=== PATIENT | female | born 1940 | race Caucasian/White ===

== ENCOUNTER → 2016-10-18 | Outpatient (REF) | payer MEDICARE, MEDICAID ==
[~2016-10-18] MED LIST: /GLYB5TA OR; /WARF5TA OR; ACET1TAB17 PO; ACET65TA OR; ASPI81CH PO; BIOTPOW20 PO; BUME0.5T PO; BUME1TA PO; BUSP10TA PO; CALCCHW12 OR; CETI10TA OR; CLOP75TA2 PO; COUM1TAB OR; DEPAKOTE; DULC10SU2 PR; ELIQ5TAB PO; ENEM1ENE4 PR; HYOS125TA PO; IMMODIUM PO; INSUH10VL SC; INSULANT SC; IRON28TA OR; KETOCONAZOLE SHAMPOO TOP; LASI80TA OR; LEVO150T42 PO; LEVO75TA2 OR; LORA0.5T11 PO; MAALSUS OR; METF-839 PO; METF500T4 OR; MILKSUS OR; MILKSUS PO; MORP20SO3 PO; MULTLIQ PO; NORV5TAB OR; REFR0.5D8 OU; ROBISYP3 PO; SERT50TA2 PO; SLOWTAB OR; SYSTANE OU; TOPR50TA OR; VALS80CA PO; VICT18IN SC; VITA200038 PO; VITMTA PO; [UNRECOGNIZED DRUG - CODE] PO
== END ==
LOC: SKLAB3 01:01
DX: I48.91 Unspecified atrial fibrillation (principal); I50.9 Heart failure, unspecified

== ENCOUNTER → 2016-10-19 | Outpatient (REF) | payer MEDICARE, MEDICAID ==
--- NOTE | 2016-10-20 00:39 | ECGEPIP ---
Stationary ECG Study [facility] Test Date: 2016-10-19 Pat Name: MILA MCLEAN Department: [facility] Room: - Gender: F Care Management Assistant: MEDHAT : 1940 Requested By: Yaritza Garcias Order Number: [id number] Reading MD: Roverto Pride Measurements Intervals [place] Rate: 66 P: [place]: 0 QRS: 239 QRSD: 130 T: 64 QT: 477 QTc: 503 Interpretive Statements ATRIAL FIBRILLATION Low QRS complex voltage in the limb leads Prolonged QTc Left bundle branch block POSSIBLE ANTERIOR MYOCARDIAL INFARCTION, OF INDETERMINATE AGE Last tracing done 10-26-11 showed a narrow QRS and sinus rhythm Electronically Signed On 10-20-2016 0:39:24 EDT by Roverto Pride
== END ==
LOC: SKLAB3 07:54
DX: I48.91 Unspecified atrial fibrillation (principal); I11.9 Hypertensive heart disease without heart failure; I50.9 Heart failure, unspecified

== ENCOUNTER → 2016-11-28 | Outpatient (REF) | payer MEDICARE, MEDICAID | LOC: SKLAB3 07:00 | DX: E03.9 Hypothyroidism, unspecified (principal) ==

== ENCOUNTER → 2017-01-06 | Outpatient (REF) | payer MEDICARE, MEDICAID ==
--- NOTE | 2017-01-06 14:09 | REP ---
Right foot series: Four views obtained portably. History: Pain and swelling right foot. Findings: Four views of the right foot demonstrate diffuse osteopenia. Achilles and plantar calcaneal spurring are noted and there is diffuse vascular calcification. Forefoot swelling is seen diffusely. No soft tissue gas is seen. No fracture or opaque foreign body noted. Impression: Diffuse swelling. Vascular calcification. Heel spurs. Diffuse osteopenia. No acute abnormality. Signed by Gilson Smith MD 01/06/2017 02:21 P
== END ==
DX: M25.571 Pain in right ankle and joints of right foot (principal)

== ENCOUNTER → 2017-01-08 | Outpatient (REF) | payer MEDICARE, MEDICAID ==
[2017-01-08 08:20] LABS: MEAN CORPUSCULAR HEMOGLOBIN 27.9 pg (27.0-33.0); MEAN CORPUSCULAR HGB CONC 31.3 g/dl (32.0-36.5); MEAN CORPUSCULAR VOLUME 89.1 fl (80.0-96.0); WHITE BLOOD COUNT 10.8 10^3/uL (4.0-10.0)
[2017-01-08 08:51] LABS: CALCIUM LEVEL 8.9 MG/DL (8.8-10.2); CREATININE FOR GFR 1.16 MG/DL (0.55-1.02); GLOMERULAR FILTRATION RATE 48.6 (>39)
== END ==
LOC: SKLAB3 07:00
DX: E11.9 Type 2 diabetes mellitus without complications (principal); I10 Essential (primary) hypertension

== ENCOUNTER → 2017-01-15 | Outpatient (CLI) | payer MEDICARE, MEDICAID ==
--- NOTE | 2017-01-15 14:07 | REP ---
Right lower extremity deep vein duplex ultrasound: The deep veins demonstrate normal compression, normal Doppler color flow and normal Doppler waveforms with respiration augmentation at multiple levels. Impression: Negative study. There is no right lower extremity deep vein thrombus. Signed by David Murrell MD 01/15/2017 01:58 P
== END ==
LOC: M RAD 13:17
PROVIDERS: ATTEND Nurse Practitioner Family
DX: M79.674 Pain in right toe(s) (principal)

== ENCOUNTER 2017-01-16 09:32 | Inpatient (IN) | payer MEDICARE, MEDICAID ==
[~2017-01-16] VITALS: Ht 144.8 cm; Wt 53.2 kg
[~2017-01-16 09:32] MED LIST changes: -ACET1TAB17 PO; -ASPI81CH PO; -BUME0.5T PO; -BUME1TA PO; -BUSP10TA PO; -CLOP75TA2 PO; -DULC10SU2 PR; -ELIQ5TAB PO; -ENEM1ENE4 PR; -HYOS125TA PO; -INSUH10VL SC; -INSULANT SC; -LEVO150T42 PO; -LORA0.5T11 PO; -METF-839 PO; -MILKSUS PO; -MORP20SO3 PO; -MULTLIQ PO; -REFR0.5D8 OU; -VICT18IN SC; -VITA200038 PO; -VITMTA PO
[2017-01-16 10:21] LABS: BASO % 0.3 % (0.0-1.0); EOS # 0.1 10^3/uL (0.0-0.50); EOS % 0.4 % (0.0-3.0); IMMATURE GRANULOCYTE % 0.5 % (0-0); LYMPH # 2.4 10^3/uL (1.5-4.5); LYMPH % 18.8 % (24.0-44.0); MEAN CORPUSCULAR HEMOGLOBIN 27.8 pg (27.0-33.0); MEAN CORPUSCULAR HGB CONC 31.4 g/dl (32.0-36.5); MEAN CORPUSCULAR VOLUME 88.6 fl (80.0-96.0); MONO # 0.9 10^3/uL (0.0-0.8); MONO % 7.1 % (0.0-5.0); NEUTROPHILS # 9.1 10^3/uL (1.8-7.7); NEUTROPHILS % 72.9 % (36.0-66.0); PLATELET COUNT, AUTOMATED 400 10^3/uL (150-450); RED CELL DISTRIBUTION WIDTH 16.9 % (11.5-14.5); WHITE BLOOD COUNT 12.5 10^3/uL (4.0-10.0)
--- NOTE | 2017-01-16 10:41 | REP ---
CHEST, SINGLE VIEW: AP portable view of the chest is performed and compared to multiple prior exams most recently 09/05/2016. There is cardiomegaly. There is vascular congestion with mild interstitial edema compatible with CHF. There is some calcification of the thoracic aorta. Mediastinal silhouette is otherwise unchanged. IMPRESSION: Cardiomegaly with findings compatible with mild CHF. Signed by David Aponte MD 01/17/2017 04:24 P
[2017-01-16 10:45] LABS: INR 1.57
[2017-01-16 10:55] LABS: CALCIUM LEVEL 8.9 MG/DL (8.8-10.2); CREATININE FOR GFR 1.23 MG/DL (0.55-1.02); FREE T4 1.56 NG/DL (0.76-1.46); GLOMERULAR FILTRATION RATE 45.4 (>39); PHOSPHORUS LEVEL 3.7 MG/DL (2.5-4.9)
[2017-01-16] MEDS ORDERED: ELIQ5TAB PO (10:57)
[2017-01-16] MEDS ORDERED: MULTLIQ PO (10:57)
[2017-01-16] MEDS ORDERED: INSUH10VL SC (10:57)
[2017-01-16] MEDS ORDERED: REFR0.5D8 OU (10:57)
[2017-01-16] MEDS ORDERED: BUSP10TA PO (10:57)
[2017-01-16] MEDS ORDERED: VITA200038 PO (10:57)
[2017-01-16] MEDS ORDERED: ASPI81CH PO (10:57)
[2017-01-16] MEDS ORDERED: VICT18IN SC (10:57)
[2017-01-16] MEDS ORDERED: BUME0.5T PO (10:57)
[2017-01-16] MEDS ORDERED: INSULANT SC ×2 (10:57)
[2017-01-16] MEDS ORDERED: FUROSEMIDE 40 MG/4 ML VIAL (J1940) IV ONE (12:15)
[2017-01-16] MEDS ORDERED: GLUCOSE 4 GM CHEW TABLET PO PRN (12:15)
[2017-01-16] MEDS ORDERED: GLUCAGON FOR INJ 1 MG VIAL (J1610) SC PRN (12:15)
[2017-01-16] MEDS ORDERED: DEXTROSE 50% 50 ML SYRINGE IV PRN (12:15)
[2017-01-16] MEDS ORDERED: BUME1TA PO (12:47)
[2017-01-16] MEDS ORDERED: ACET1TAB17 PO (12:47)
[2017-01-16] MEDS ORDERED: LEVO150T42 PO (12:47)
[2017-01-16] MEDS ORDERED: METF-839 PO (12:47)
[2017-01-16] MEDS ORDERED: VITMTA PO (12:47)
[2017-01-16] MEDS ORDERED: ENEM1ENE4 PR (12:47)
[2017-01-16] MEDS ORDERED: MILKSUS PO (12:47)
[2017-01-16] MEDS ORDERED: DULC10SU2 PR (12:47)
[2017-01-16] MEDS: hydrALAZINE INJ 20 MG/ML VIAL IV SCH ×2 (14:44→17:56)
[2017-01-16] MEDS: HEPARIN SOD (PORCINE) 5000 UNITS/ML VIAL SQ SCH ×2 (14:45→21:22)
[2017-01-16 16:00] VITALS: BP 177/79
[2017-01-16] MEDS: busPIRone 10 MG TAB PO SCH ×2 (16:00→20:31)
[2017-01-16] MEDS ORDERED: FLEET ENEMA PR PRN (17:30)
[2017-01-16] MEDS ORDERED: MOM 30ML SUSPENSION UDC PO PRN (17:30)
[2017-01-16] MEDS ORDERED: BISACODYL 10 MG SUPP PR PRN (17:30)
[2017-01-16] MEDS: HumaLOG INSULIN (NovoLOG) PER UNIT SC SCH ×2 (17:30→20:30)
--- NOTE | 2017-01-16 17:47 | HPEPDOC ---
General Date of Admission Jan 16, 2017 at 12:12 Chief Complaint The patient is a 76-year-old female who presented to [facility] from [facility] because she was found to be bradycardic. History of Present Illness Patient is a 76 year old female with a PMHx of Dementia, A. fib (on Eliquis), Diastolic CHF, HTN, IDDM2, DLP, Hypothyroidism, PVD s/p L AKA and Depression. Patient was at [facility] and was being evaluated for her right foot first digit ischemia. She was incidently found to have a HR of 38 and was transferred to [facility]. Patient is a poor historian and majority of information has been collected from the medical record. Currently she denies having any chest pain, shortness of breath, nausea, vomting , dizziness or visual problems. She denies any abdominal pain, constipation, diarrhea or dysuria. Patient is not capable of making decisions for herself. Her healthcare proxy was contacted (Krystle Pfeiffer: [phone]). I have discussed with her what her wishes are moving forward. She has indicated that they have not made a MOLST form or any indication of whether they are going to be full code or DNR. Currently she advised me that they would pursue any intervention that is required to help her. I have asked specifically if a pacemaker is required would they want this, at this point she has advised me that she would like one placed if required. Home Medications Scheduled (Aspirin) 81 Mg Chw, 81 MG PO DAILY, (Reported) Apixaban Base (Eliquis) 5 Mg Tab, 5 MG PO BID, (Reported) Bumetanide (Bumetanide) 1 Mg Tab, 1 MG PO DAILY, (Reported) Buspirone HCl (Buspirone HCl) 10 Mg Tab, 10 MG PO TID, (Reported) Carboxymethylcellulose Sodium (Refresh Tears) 0.5 % Franko, 1 DROP OU QID, ( Reported) Cholecalciferol (Vitamin D-3) 2,000 Unit Tab, 2,000 UNIT PO DAILY, (Reported) Insulin Aspart (Novolog) 100 U/Ml Inj, 6 UNITS SC TID, (Reported) Insulin Glargine (Lantus) 1 Units/0.01 Ml Susp, 44 UNITS SC QAM, (Reported) Insulin Glargine (Lantus) 1 Units/0.01 Ml Susp, 50 UNITS SC QHS, (Reported) Levothyroxine Sodium (Levoxyl) 150 Mcg Tab, 150 MCG PO DAILY, (Reported) Liraglutide (Victoza) 18 Mg/3 Ml Inj, 1.8 MG SC DAILY, (Reported) Metformin Hydrochloride (Metformin Hydrochloride) 500 Mg Tab, 500 MG PO BID, ( Reported) Multivitamins *[facility] STOCKED* (Thera M Plus *[facility] STOCKED*) 1 Tab Tab, 1 TAB PO DAILY, (Reported) Sertraline Hcl (Sertraline Hcl) 50 Mg Tab, 50 MG PO DAILY, (Reported) Valsartan (Diovan) 80 Mg Tab, 160 MG PO DAILY, (Reported) Scheduled PRN (Enema) 1 Abhi Abhi, 1 ABHI NC DAILY PRN for BOWEL CARE, (Reported) Acetaminophen (Acetaminophen) 325 Mg Tab, 650 MG PO Q4H PRN for PAIN / FEVER, ( Reported) Bisacodyl (Dulcolax) 10 Mg Sup, 10 MG NC DAILY PRN for BOWEL CARE, (Reported) Milk Of Magnesia (Milk of Magnesia) 1,200 Mg/15 Ml Cynthia, 30 ML PO DAILY PRN for BOWEL CARE, (Reported) Allergies Coded Allergies: No Known Drug Allergy (Verified Allergy, Unknown, 07/01/12) Past Medical History Medical History Dementia, A. fib (on Eliquis), Diastolic CHF, HTN, IDDM2, DLP, Hypothyroidism, PVD s/p L AKA and Depression. Surgical History Left leg AKA Family History - Unable to acquire Social History - Denies the use of alcohol, tobacco or illicit drugs - Denies recent travel or sick contacts - Lives at [facility] Review of Symptoms Other systems Unable to acquire detailed ROS; majority collected in HPI Vital Signs - Vitals: BP 177/79, HR 44, RR 20, Sat 98%RA, Temp 97.5 - General: Lying in bed, No acute distress, Speaking in full sentences, AAOx2 - HEENT: NC, AT, PERRLA, EOMI - CVS: Bradycardic, Irregular, S1S2 - Lungs: Fair air entry bilaterally, Clear to auscultation, No wheezing / rales / rhonchi - Abdomen: Soft, Non-distended, Non-tender - Extremities: No lower extremity edema, No calf tenderness, Left AKA, - Neuro: No focal motor or sensory deficit - Skin: Right foot first digit with ischemia (appears cold), +PT pulse, Difficult to appreciate DP Laboratory Data Labs 24H Laboratory Tests 2 01/16/17 09:48: Immature Granulocyte % (Auto) 0.5H, White Blood Count 12.5H, Red Blood Count 3.70L, Hemoglobin 10.3L, Hematocrit 32.8L, Mean Corpuscular Volume 88.6, Mean Corpuscular Hemoglobin 27.8, Mean Corpuscular Hemoglobin Concent 31.4L, Red Cell Distribution Width 16.9H, Platelet Count 400, Neutrophils (%) (Auto) 72.9H , Lymphocytes (%) (Auto) 18.8L, Monocytes (%) (Auto) 7.1H, Eosinophils (%) (Auto ) 0.4, Basophils (%) (Auto) 0.3, Neutrophils # (Auto) 9.1H, Lymphocytes # (Auto ) 2.4, Monocytes # (Auto) 0.9H, Eosinophils # (Auto) 0.1, Basophils # (Auto) 0.0 , Immature Granulocyte # (Auto) 0.1H, Nucleated Red Blood Cells % (auto) 0.0, Prothrombin Time 19.2H, Prothromb Time International Ratio 1.57, Activated Partial Thromboplast Time 42.3H, Anion Gap 11, Glomerular Filtration Rate 45.4, Blood Urea Nitrogen 43H, Creatinine 1.23H, Sodium Level 137, Potassium Level 5.0 , Chloride Level 105, Carbon Dioxide Level 21, Calcium Level 8.9, Phosphorus Level 3.7, Total Creatine Kinase 43, Magnesium Level 2.0, Creatine Kinase MB 1.6 , Creatine Kinase MB Relative Index 3.72, Troponin I 0.02, C-Reactive Protein, Quantitative 3.03H, LK-Vzs-[id number]-Type Natriuretic Peptide 3301H, Thyroid Stimulating Hormone (TSH) 0.708, Free Thyroxine 1.56H 01/16/17 12:07: Erythrocyte Sedimentation Rate 63H 01/16/17 16:11: Total Creatine Kinase 43, Creatine Kinase MB 1.6, Creatine Kinase MB Relative Index 3.72, Troponin I < 0.02 CBC/BMP Laboratory Tests 01/16/17 09:48 Red Blood Count 3.70 L, Mean Corpuscular Volume 88.6, Mean Corpuscular Hemoglobin 27.8, Mean Corpuscular Hemoglobin Concent 31.4 L, Red Cell Distribution Width 16.9 H, Neutrophils (%) (Auto) 72.9 H, Lymphocytes (%) (Auto ) 18.8 L, Monocytes (%) (Auto) 7.1 H, Eosinophils (%) (Auto) 0.4, Basophils (%) (Auto) 0.3, Neutrophils # (Auto) 9.1 H, Lymphocytes # (Auto) 2.4, Monocytes # ( Auto) 0.9 H, Eosinophils # (Auto) 0.1, Basophils # (Auto) 0.0, Calcium Level 8.9 , Phosphorus Level 3.7, Total Creatine Kinase 43 Plan / VTE VTE Prophylaxis Ordered?: Yes Plan Plan Bradycardia - Remains asymptomatic - Medication list reviewed - EKG noted to have A. fib with slow RVR at rate of 39, QRS duration of 123, QTc of 506 - Troponin x2 negative; will follow last set - TSH within normal limits; Free T4 slightly elevated - Will order ECHO - Will avoid ulisses blocking agents - Discussed case with Cardiology (Dr. Oliveros) will be on consultation; likely will have PM placement - Will hold Eliquis and ASA for procedure Accelerated HTN - BP in systolic of 180s - Will c/w Valsartan - Will add hydralazine if BP remains elevated PVD s/p L AKA - Right first digit of foot with evidence of ischemia - Dr. Atkinson for evaluation and management Leukocytosis - likely 2/2 ischemia of toe - remains afebrile - will continue to monitor Normocytic anemia - Hg appears to be at baseline - will continue to monitor Elevated Cr - Will hold off on IV fluid hydration for now - Will follow Dementia - Healthcare proxy Sabina Barriga ([phone]) and Krystle Pfeiffer ([phone]) A. fib - Currently not on rate control - Eliquis will be held for procedure Diastolic CHF - Clinically dose not appear to have any signs of fluid overload; no crackles and LE edema - Pro-BNP of 3301 - CXR 01/16: mild CHF pattern - Has been on Bumetanide 1mg as outpatient - Will give Furosemide 40 mg IV x 1 dose now IDDM2 - will c/w ISS - will c/w Levemir at reduced dose (40 BID) DLP - not on statin Hypothyroidism - c/w Levothyroxine Depression - c/w Buspirone and Sertraline DVT prophylaxis - Will start Heparin VEDA KO MD Jan 16, 2017 17:46
--- NOTE | 2017-01-16 18:46 | CR ---
DATE OF CARDIOLOGY CONSULTATION: 01/16/2017 REFERRING PHYSICIAN: Kathryn Carrion MD INDICATION: Chronic atrial fibrillation with slow ventricular response. HISTORY: This 76-year-old mother of three grown children, with multiple medical problems including hypertensive heart disease, chronic atrial fibrillation, prior cerebrovascular accident with left hemipareses, congestive heart failure (diastolic) and dementia, residing at the [facility] here in [place]. She has been monitored by Dr. Castillo who apparently was examining her this morning regarding toe pain due to ischemic disease/peripheral vascular disease, is status post left below-knee amputation. Vital signs were recorded showing heart rate in the 30s, yet the patient in light of her physical limitation (bedrest/assisted care) was completely asymptomatic. In light of the marked bradycardia, she was transferred to [facility] and was admitted to the intensive care unit. The patient does not have a DNR, but lists two cousins as her healthcare proxy. Unfortunately, because of the patient's dementia, her history was chiefly obtained from the medical record and her nursing floor. KNOWN PAST CARDIAC DISEASE/EVENTS/TESTS: Longstanding hypertension with echocardiographically documented hypertensive heart disease dating back to at least 2007 with preserved systolic function, dilated left atrium and left ventricle (LV) diastolic dysfunction. Last echocardiogram October 2011 showed hyperdynamic left ventricular systolic function with moderately dilated left atrium and elevated estimated mean left atrial pressure. She is believed to have at least moderate secondary pulmonary hypertension. Has moderate mitral annular calcification with very mild insufficiency and mild aortic valvular sclerosis without functional abnormality. ECHOCARDIOGRAM: October 19, 2016 showed underlying atrial fibrillation with marked leftward axis and left bundle branch block. EKG today at 08:23 a.m. showed underlying atrial fibrillation with markedly slow ventricular response averaging 38 beats per minute (BPM) with marked leftward axis and left bundle branch block. Only change was related to slowing of her ventricular response. CORONARY RISK FACTORS: Advanced age. Type 2 diabetes mellitus, non-insulin dependent, obesity, hypercholesterolemia, hypertension. OTHER PAST MEDICAL HISTORY: Obesity. Advanced dementia. Peripheral vascular disease, status post left lower extremity above-knee amputation. Remote cholecystectomy. Cerebrovascular accident with left-sided hemiparesis. Ischemic right foot. Hypothyroidism. Depression/anxiety. REVIEW OF SYSTEMS: The patient herself is completely comfortable, denying all system questions, in particular denies chest pain, shortness of breath, palpitations, dizziness. MEDICATIONS: Valsartan 160 mg daily, Eliquis 5 mg twice a day, aspirin 81 mg daily, Bumex 1 mg daily, levofloxacin 150 mcg daily, Lantus insulin 44 units subcu every morning and 50 units subcu every evening with NovoLog insulin 6 units subcu three times a day, metformin 500 mg twice a day, Calciferol 2000 units by mouth daily, BuSpar 10 mg three times a day, Victoza 1.8 mg subcu daily, multivitamin 1 tablet daily, sertraline 50 mg by mouth daily, Refresh eye drops 1 drop each eye four times a day as needed, acetaminophen, Dulcolax. suppository, and milk of magnesia. ALLERGIES: None known. PHYSICAL EXAMINATION: Constitutional: Pleasantly demented elderly lady laying comfortably flat. Did not appear to be in any distress. Vital signs: Heart rate 44 beats per minute and irregularly irregular, blood pressure 170/60 supine, respiratory rate 18 per minute, oxygen saturation 98% on room air. Afebrile. Weight 122 pounds, height 57 inches, body mass index (BMI) 26.3. Eyes: Normal conjunctivae and lids. No xanthelasma. ENT/mouth: Dentures. Normal oral moisture. No central cyanosis. Neck: Trachea midline. Neck veins did not appear to be elevated. Thyroid did not appear to be enlarged. Respiratory: Normal chest configuration and chest expansion with good air entry over both lung guzman with no current pulmonary adventitious sounds. Cardiovascular: Apical impulse at midclavicular line 5th intercostal space. S1 and S2 were variable related to her arrhythmia with a persistent S2 splitting. No audible gallop. Has a variable systolic ejection murmur, averaging grade 2/6 along left sternal border radiating to the right base. No diastolic murmur. Normal carotid upstroke and variable volume related to her arrhythmia. Transmitted bruit from the precordium. Upper extremity pulses were symmetrical and normal. Femoral pulses appear to be normal. Left above-knee amputation with well-healed stump. The right foot is somewhat erythematous with gangrenous first toe. Very faint palpable dorsalis pedis. No dependent edema. Abdominal aorta was not palpable. No bruits. Extremities: No clubbing, peripheral cyanosis or splinter hemorrhages. GI: Soft, nontender abdomen with no hepatosplenomegaly. Normal bowel sounds. Rectal examination: Not indicated. Neural/Psych: Currently alert and oriented to place, but not person or time. Appears in no distress. Left upper extremity is contracted, unable to move this arm. Was able to move her right arm. Does not move her left leg very much because of some discomfort. No abnormal movements. Skin: Ischemic discoloration of her right foot as mentioned. No other rashes, ecchymotic lesions or icterus. INVESTIGATIONS: Laboratory data: Hemoglobin 10.3 with normal red blood cell indices. White blood cell count was slightly elevated at 12.5, sedimentation rate was elevated at 63. On Eliquis, PT and PTT are elevated. Electrolytes were in balance with normal bicarbonate. BUN has increased over the course the past few months from a normal of 15 October at 26 to 37 January 08 and now 43. Creatinine has also been increasing. Creatinine increasing from 0.84 October 18 to 1.16 January 08 and currently 1.23. Her glucose this morning was 141. Troponin I levels have been negative. BNP level was markedly elevated at 3301. C-reactive protein is also elevated, likely related to her ischemic foot. Ultrasensitive TSH was normal. Portable upright chest x-ray was quite rotated but even allowing for this she has obvious cardiomegaly. Her thoracic aorta is slightly unfolded. Pulmonary vasculature did not appear to be accentuated. No interstitial edema or pleural effusions. EKG is as described above. IMPRESSION/PLAN: 1. Atrioventricular (AV) block (high grade): As mentioned related to her sedentary/bed ridden status this has been asymptomatic, but is likely contributing to her worsening renal function. She has had EKG evidence of conduction tissue disease dating back some time. No clear potentially reversible factors. In light of her dementia, bedridden status and complicated multiple medical problems I do not believe she would be a good candidate for permanent pacemaker implant. It is unlikely this will improve her quality of life or improve her length of life substantially given her complicated medical problems. The patient herself is unable to mentally give consent for the procedure or DNR. I have spoken with her designated healthcare proxies, Mrs. Gardner and Mrs. Vallejo, her cousins regarding her situation and I believe they understand and would rather "mother nature take her course". Until they have discussed this further and have signed DNR she is currently in the intensive care unit on monitor. 2. Abnormal EKG: Has had left bundle branch block dating back some time. As mentioned related to degenerative conduction tissue disease with her advanced age and chronic hypertension. 3. Heart failure (diastolic/chronic): No acute symptoms or signs of congestion despite her elevated BNP level. Obviously, her bradyarrhythmia is likely contributing to this elevation as well as her renal insufficiency. Her valsartan and diuretic therapies are currently on hold in light of her azotemia. 4. Chronic atrial fibrillation: Dating back to 2011 had been on a beta kev therapy for control of ventricular response. This has long been discontinued. Has had echocardiographically proven hypertensive heart disease dating back to at least 2007. Prior cerebrovascular accident was likely thromboembolic. Has been free of any new lateralizing neurological event on combination oral anticoagulant and low-dose aspirin. 5. Hypertensive heart disease (benign with heart failure): The observed systolic hypertension with increased pulse pressure is compensatory related to her marked bradycardia. I would not be inclined to treat this. Worsening azotemia as mentioned due to reduced renal perfusion and her documented peripheral vascular disease. As mentioned, I have spent considerable time speaking to her healthcare proxies and have encouraged them to complete DNR papers. For the time being we will plan on following her with you and appreciate the opportunity to participate in her care. Best regards, Pio Oliveros MD, FACC
--- NOTE | 2017-01-16 19:12 | ECGEPIP ---
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
[2017-01-16 19:54] VITALS: BP 158/50
[2017-01-16] MEDS: LEVEMIR (INSULIN DETEMIR) 1 UNITS/0.01ML SC SCH ×3 (21:00→21:26)
[2017-01-16 21:28] VITALS: BP 160/62
[2017-01-17] VITALS (8 sets, daily range): BP systolic 136–197; BP diastolic 56–79
[2017-01-17] MEDS ORDERED: SLF 3 ML SYR IV PRN (02:30)
[2017-01-17 05:31] LABS: BASO % 0.4 % (0.0-1.0); EOS % 0.3 % (0.0-3.0); IMMATURE GRANULOCYTE % 0.4 % (0-0); LYMPH # 2.4 10^3/uL (1.5-4.5); LYMPH % 24.1 % (24.0-44.0); MEAN CORPUSCULAR HGB CONC 31.9 g/dl (32.0-36.5); MEAN CORPUSCULAR VOLUME 87.7 fl (80.0-96.0); MONO # 0.9 10^3/uL (0.0-0.8); MONO % 8.9 % (0.0-5.0); NEUTROPHILS # 6.5 10^3/uL (1.8-7.7); NEUTROPHILS % 65.9 % (36.0-66.0); PLATELET COUNT, AUTOMATED 356 10^3/uL (150-450); RED CELL DISTRIBUTION WIDTH 17.2 % (11.5-14.5); WHITE BLOOD COUNT 9.8 10^3/uL (4.0-10.0)
[2017-01-17 05:57] LABS: ALBUMIN 2.6 GM/DL (3.2-5.2); ALBUMIN/GLOBULIN RATIO 0.58 (1.00-1.93); BILIRUBIN,TOTAL 0.4 MG/DL (0.2-1.0); CALCIUM LEVEL 8.7 MG/DL (8.8-10.2); CREATININE FOR GFR 1.18 MG/DL (0.55-1.02); GLOMERULAR FILTRATION RATE 47.7 (>39); POTASSIUM SERUM 4.4 MEQ/L (3.5-5.1); TOTAL PROTEIN 7.1 GM/DL (6.4-8.2)
[2017-01-17] MEDS: hydrALAZINE INJ 20 MG/ML VIAL IV SCH ×2 (06:00)
[2017-01-17] MEDS: LEVOTHYROXINE 150MCG TABLET (0.15MG) PO SCH (06:20)
[2017-01-17] MEDS: HEPARIN SOD (PORCINE) 5000 UNITS/ML VIAL SQ SCH ×3 (06:20→21:19)
[2017-01-17] MEDS: SLF 3 ML SYR IV SCH ×3 (06:20→21:20)
[2017-01-17] MEDS: HumaLOG INSULIN (NovoLOG) PER UNIT SC SCH ×4 (07:30→21:00)
[2017-01-17] MEDS: LEVEMIR (INSULIN DETEMIR) 1 UNITS/0.01ML SC SCH (09:00)
[2017-01-17] MEDS: busPIRone 10 MG TAB PO SCH ×3 (09:58→21:19)
[2017-01-17] MEDS: VITAMIN D 1,000 INTERNATIONAL UNITS TABLET PO SCH (09:58)
[2017-01-17] MEDS: MULTIVITAMINS/MINERALS THERAP 1 TAB PO SCH (09:58)
[2017-01-17] MEDS: SERTRALINE HCL 50 MG TAB PO SCH (09:58)
[2017-01-17] MEDS: VALSARTAN 80 MG TAB (DIOVAN) PO SCH (09:58)
--- NOTE | 2017-01-17 13:00 | REP ---
RIGHT LOWER EXTREMITY DUPLEX DOPPLER ARTERIAL ULTRASOUND: Real-time ultrasound evaluation and duplex Doppler interrogation of the right lower extremity arterial system is performed. Distal abdominal aorta demonstrates peak systolic velocity 90.6 cm/s with triphasic waveform. Right common iliac artery demonstrates peak systolic velocity 49.3 cm/s with triphasic waveform. Right external iliac artery demonstrates peak systolic velocity 74 cm/s with monophasic waveform. Right common femoral artery demonstrates peak systolic velocity 124.9 cm/s monophasic waveform, right superficial femoral artery 74 cm/s proximally, 29.6 cm mid aspect and 77.5 cm/s distally with monophasic waveforms. Peak systolic velocity right popliteal artery 87.9 cm/s with monophasic waveform. Proximal anterior and posterior tibial arteries are not visualized. There is flow in the distal anterior and posterior tibial arteries with monophasic waveforms, with monophasic waveform also seen in the right peroneal artery. There is extensive arterial plaquing and narrowing diffusely. The findings are suggestive of extensive stenotic disease, with severe stenosis in the region of the right external iliac artery and possibly right common femoral and superficial femoral arteries. There is probably severe stenosis of the proximal anterior and posterior tibial arteries. Signed by David Aponte MD 01/17/2017 04:44 P
--- NOTE | 2017-01-17 13:39 | IPNPDOC ---
Text Note Date of Service The patient was seen on 01/17/17. NOTE Subjective: Patient is a 76 year old female with a PMHx of Dementia, A. fib (on Eliquis), Diastolic CHF, HTN, IDDM2, DLP, Hypothyroidism, PVD s/p L AKA and Depression. She was at [facility] and was being evaluated for her right foot first digit ischemia, was incidentally found to have a HR of 38 and was transferred to [facility] ER. Admitted for bradycardia. Patient is a poor historian and majority of information has been collected from the medical record. She is not capable of making decisions. I have discussed with her healthcare proxies that were listed about the patient's code status. Discussed with Ms. Barriga (C: [phone]) and Ms. Bullard (C:[phone]); they have expressed to me that they don't want to play god and want nature to takes it's course. I agreed with them and that this would be the best course of action given several of her comorbidities and limited life expectancy. However they did not feel comfortable signing a MOLST form to reflect this. They have indicated that we should get in touch with her estranged children who have not been apart of her life. I have relayed my discussion with Dr. Oliveros. He is agreeable that she is a poor candidate for PM placement. He will attempt to reach out to the healthcare proxies again to have another discussion. Patient was seen and examined at the bedside. She again denies any complaints. Objective: Vitals (See below) General: Lying in bed, no acute distress, comfortable, AAOx2 HEENT: NC, AT CVS: Bradycardic, Irregular, +S1S2 Lungs: Fair air entry b/l, -w/r/r Abdomen: Soft, ND, NT Extremities: - Edema, s/p L AKA, - Calf tenderness Assessment and plan: Bradycardia - Remains asymptomatic; no reversible causes found - Tele still shows slow atrial fibrillation - Troponin x3 negative - TSH within normal limits; Free T4 slightly elevated - ECHO pending - Will avoid ulisses blocking agents - Consulted Cardiology (Dr. Oliveros); appreciate input; likely a poor candidate for PM placement - Will hold Eliquis and ASA for possible procedure Accelerated HTN - BP in systolic of 140-150s - c/w Valsartan and Hydralazine if BP remains elevated PVD s/p L AKA - Right first digit of foot with evidence of ischemia - Dr. Atkinson for evaluation and management s/p Leukocytosis - likely 2/2 ischemia of toe - remains afebrile - will continue to monitor Normocytic anemia - Hg appears to be at baseline - will continue to monitor Elevated Cr - possibly 2/2 poor renal perfusion - Remains stable Dementia - Healthcare proxy Sabina Barriga (H: [phone]) and Krystle Pfeiffer (H: [phone]) ATonia fib - Currently not on rate control - Eliquis will be held for possible procedure Diastolic CHF - Clinically dose not appear to have any signs of fluid overload; no crackles and LE edema - Pro-BNP of 3301 - CXR 01/16: mild CHF pattern - Has been on Bumetanide 1mg as outpatient - s/p Furosemide 40 IV x 1 dose IDDM2 - c/w ISS and Levemir at reduced dose - Will reduce dose of Levemir as patient is hypoglycemic DLP - not on statin Hypothyroidism - c/w Levothyroxine Depression - c/w Buspirone and Sertraline DVT prophylaxis - c/w Heparin VS,Fishbone, I+O VS, Fishbone, I+O Laboratory Tests 01/17/17 05:18 Red Blood Count 3.50 L, Mean Corpuscular Volume 87.7, Mean Corpuscular Hemoglobin 28.0, Mean Corpuscular Hemoglobin Concent 31.9 L, Red Cell Distribution Width 17.2 H, Neutrophils (%) (Auto) 65.9, Lymphocytes (%) (Auto) 24.1, Monocytes (%) (Auto) 8.9 H, Eosinophils (%) (Auto) 0.3, Basophils (%) ( Auto) 0.4, Neutrophils # (Auto) 6.5, Lymphocytes # (Auto) 2.4, Monocytes # (Auto ) 0.9 H, Eosinophils # (Auto) 0.0, Basophils # (Auto) 0.0, Calcium Level 8.7 L, Aspartate Amino Transf (AST/SGOT) 20, Alanine Aminotransferase (ALT/SGPT) 22, Alkaline Phosphatase 61, Total Bilirubin 0.4, Total Protein 7.1, Albumin 2.6 L Vital Signs Date Time Temp Pulse Resp B/P (MAP) Pulse Ox O2 Delivery O2 Flow Rate FiO2 01/17/17 12:45 97.5 40 20 148/64 (92) 96 Room Air I&O- Last 24 Hours up to 6 AM 01/18/17 06:00 Intake Total 240 ml Balance 240 ml VEDA KO MD Jan 17, 2017 13:39
--- NOTE | 2017-01-17 17:08 | IPN ---
DATE: 01/17/2017 CARDIOLOGY PROGRESS NOTE: SUBJECTIVE: The patient's only complaint is foot pain with any movements. Otherwise, she claims to be feeling well, lying in bed. Specifically, she denies any chest discomfort, shortness of breath, palpitations or faintness. OBJECTIVE: This pleasantly demented, elderly woman of medium body build, laying comfortably with the head of the bed elevated at 20 degrees. No pallor or cyanosis, bright and alert. Heart rate 42 beats per minute (BPM) and irregular, blood pressure 158/56, respiratory rate 18 per minute, oxygen saturation 90% on room air. Afebrile. Weight is stable at 55.2 kg. No central cyanosis. Normal oral moisture. Trachea midline. Neck veins did not appear elevated. Continues to have good air entry over both lung guzman with no abnormal adventitious sounds. Apical impulse not palpable, variable heart sounds with stable systolic ejection murmur that was also variable in intensity. Discolored gangrenous first right toe. Above-knee left amputation. No dependent edema. 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 LABORATORY DATA: Hemoglobin 9.8 with normal white blood cell count. Electrolytes remain in balance with BUN 43, creatinine 1.18 essentially stable, fasting glucose 57, albumin 2.6. Right lower extremity Doppler arterial ultrasound was performed earlier today and showed extensive severe vascular disease affecting her right extremity, including the right external iliac, right common femoral and superficial femoral arteries. Also felt to likely have severe proximal anterior and posterior tibial arteries. IMPRESSION/PLAN: 1. Atrioventricular (AV) block (unspecified): At this point, she continues to have marked bradycardia which is asymptomatic as the patient is bedridden. She is in no distress from this arrhythmia. As previously stated with her dementia, immobility and severe peripheral vascular disease, we have not felt that permanent pacemaker implant would significantly improve her quality or length of life. I again spoke with her healthcare proxy, Marielos Frank, and tried to reach out to her daughter, Fariha, and speak with Pat Files her other healthcare proxy. It would appear there is a consensus that they would rather have "mother nature take her course" rather than invasive intervention, but they seem to have difficulty understanding that DO NOT RESUSCITATE (DNR) documents should be signed to follow these wishes. I believe they still feel, despite our reassurance, that DNR means she will receive no treatment. I have tried to reassure them that this is not the case. No one is in favor of permanent pacemaker implantation at this time. 2. Abnormal EKG: No followup study was performed today. She has remained free of any chest pain and serial Troponin I levels are negative. 3. Heart failure (diastolic/chronic): Despite her elevated brain natriuretic peptide (BNP) level, she remains free of any symptom or sign of congestion. Oxygen saturation on room air is normal. 4. Chronic atrial fibrillation: At this point, she has a slow ventricular response as mentioned above without negative chronotropic therapy. Currently off her oral anticoagulant therapy. Note is made of her hemoglobin down to 9.8 without any clear manifest bleeding. Hemoglobin 10/18/2016 was normal at 12.0. 5. Hypertensive heart disease (benign with heart failure): As previously mentioned, observed systolic hypertension is a reflection of her bradyarrhythmia and compensation for this with increased pulse pressure. Her valsartan, angiotensin receptor kev therapy was resumed earlier today. As discussed with Dr. Carrion, we remain in a somewhat difficult social situation where her healthcare proxies are in agreement not to do any invasive interventions should she suffer cardiopulmonary arrest and they agree that they do not wish her to undergo permanent pacemaker implant. Unfortunately, the do not seem to understand that legally DO NOT RESUSCITATE (DNR) papers must be filled for the medical service to be directed legally. At this point, I understand Dr. Carrion is contacting her primary physician, Dr. Garcias, regarding possible transfer back to [facility]. I believe this would be in the patient's best interest and am in support of the family's wishes. We have tried to contact her children without success but understand they have been estranged from their mother for some time. At this point, I intend to follow her from afar. SHAHNAZ
[2017-01-18] VITALS (7 sets, daily range): BP systolic 128–178; BP diastolic 40–76
[2017-01-18 05:43] LABS: BASO % 0.3 % (0.0-1.0); EOS # 0.1 10^3/uL (0.0-0.50); EOS % 0.6 % (0.0-3.0); IMMATURE GRANULOCYTE % 0.6 % (0-0); LYMPH # 2.2 10^3/uL (1.5-4.5); LYMPH % 20.9 % (24.0-44.0); MEAN CORPUSCULAR HEMOGLOBIN 27.5 pg (27.0-33.0); MEAN CORPUSCULAR HGB CONC 31.2 g/dl (32.0-36.5); MEAN CORPUSCULAR VOLUME 88.1 fl (80.0-96.0); MONO # 0.9 10^3/uL (0.0-0.8); MONO % 8.7 % (0.0-5.0); NEUTROPHILS # 7.1 10^3/uL (1.8-7.7); NEUTROPHILS % 68.9 % (36.0-66.0); PLATELET COUNT, AUTOMATED 365 10^3/uL (150-450); RED CELL DISTRIBUTION WIDTH 17.2 % (11.5-14.5); WHITE BLOOD COUNT 10.3 10^3/uL (4.0-10.0)
[2017-01-18 06:00] LABS: ALBUMIN 2.5 GM/DL (3.2-5.2); ALBUMIN/GLOBULIN RATIO 0.49 (1.00-1.93); BILIRUBIN,TOTAL 0.4 MG/DL (0.2-1.0); CALCIUM LEVEL 8.6 MG/DL (8.8-10.2); CREATININE FOR GFR 1.15 MG/DL (0.55-1.02); GLOMERULAR FILTRATION RATE 49.1 (>39); MAGNESIUM LEVEL 2.1 MG/DL (1.8-2.4); POTASSIUM SERUM 4.4 MEQ/L (3.5-5.1); TOTAL PROTEIN 7.6 GM/DL (6.4-8.2)
[2017-01-18] MEDS: HEPARIN SOD (PORCINE) 5000 UNITS/ML VIAL SQ SCH ×3 (06:37→21:50)
[2017-01-18] MEDS: LEVOTHYROXINE 150MCG TABLET (0.15MG) PO SCH (06:37)
[2017-01-18] MEDS: SLF 3 ML SYR IV SCH ×3 (06:37→21:50)
[2017-01-18] MEDS: HumaLOG INSULIN (NovoLOG) PER UNIT SC SCH ×4 (09:09→21:00)
[2017-01-18] MEDS: busPIRone 10 MG TAB PO SCH (09:10)
[2017-01-18] MEDS: VITAMIN D 1,000 INTERNATIONAL UNITS TABLET PO SCH (09:10)
[2017-01-18] MEDS: SERTRALINE HCL 50 MG TAB PO SCH (09:10)
[2017-01-18] MEDS: VALSARTAN 80 MG TAB (DIOVAN) PO SCH (09:10)
[2017-01-18] MEDS: MULTIVITAMINS/MINERALS THERAP 1 TAB PO SCH (09:10)
[2017-01-18] MEDS ORDERED: ACETAMINOPHEN TAB 650MG DOSE (2X325MG) PO PRN (15:15)
--- NOTE | 2017-01-18 15:15 | IPNPDOC ---
Text Note Date of Service The patient was seen on 01/18/17. NOTE Subjective: Patient is a 76 year old female with a PMHx of Dementia, A. fib (on Eliquis), Diastolic CHF, HTN, IDDM2, DLP, Hypothyroidism, PVD s/p L AKA and Depression. She was at [facility] and was being evaluated for her right foot first digit ischemia, was incidentally found to have a HR of 38 and was transferred to [facility] ER. Admitted for bradycardia. Patient is not a candidate for pacemaker. Her healthcare proxies listed indicate that the would like "mother nature takes its course" however have not quite understood what DNR means. I have reached out again to Ms. Barriga and Ms. Pfeiffer. Ms Barriga has indicated that she was in the cafeteria of the hospital and may or may not come back up to discuss her case further. Ms. Barriga has returned to the room after 1 hour and I have discussed with the what they would have wished for Ms. Womack moving forward. Again they have indicated that they would allow "mother nature to take its course" and "allow God's will." Again they have mentioned a viewpoint that is inline with DNR, however they fall short of filling out a MOLST form. I have reached out again to Dr. Oliveros (Cardiology) and Dr. Bryant ( Department of Medicine Head and Attending at [facility]). They are both aware of the situation and have had similar discussions with the family. We all feel, healthcare proxies included, that patient would not benefit from a pacemaker placement. Currently I have discussed with Dr. Bryant and we will be sending the patient back to the custodial without any additional intervention. Patient was seen and examined at the bedside. She again denies any complaints. Denies chest pain, palpitations, shortness of breath or dizziness. Objective: Vitals (See below) General: Lying in bed, no acute distress, comfortable, AAOx2 HEENT: NC, AT CVS: Bradycardic, Irregular, +S1S2 Lungs: Fair air entry b/l, -w/r/r Abdomen: Soft, ND, NT Extremities: - Edema, s/p L AKA, - Calf tenderness Assessment and plan: Bradycardia - Remains asymptomatic; no reversible causes found - Tele still shows slow atrial fibrillation - Troponin x3 negative - TSH within normal limits; Free T4 slightly elevated - ECHO remains pending - Will avoid ulisses blocking agents; will stop Buspirone and Sertraline - Consulted Cardiology (Dr. Oliveros); poor candidate for PM placement - Will restart Eliquis and ASA given no plan for intervention Accelerated HTN - BP in systolic of 140-150s - c/w Valsartan and Hydralazine if BP remains elevated PVD s/p L AKA - Right first digit of foot with evidence of ischemia - Dr. Atkinson for evaluation and management - Recommended full anticoagulation and antiplatelet therapy - Will restart Eliquis - Discussed with Dr. Atkinson; will start Plavix s/p Leukocytosis - likely 2/2 ischemia of toe - remains afebrile - will continue to monitor Normocytic anemia - Hg appears to be at baseline - will continue to monitor Elevated Cr - possibly 2/2 poor renal perfusion - Remains stable Dementia - Healthcare proxy Sabina Barriga (H: [phone]) and Krystle Littlejohngloryham (H: ) Dorene garcia - Currently not on rate control - Eliquis will be held for possible procedure Diastolic CHF - Clinically dose not appear to have any signs of fluid overload; no crackles and LE edema - Pro-BNP of 3301 - CXR 01/16: mild CHF pattern - Has been on Bumetanide 1mg as outpatient - s/p Furosemide 40 IV x 1 dose IDDM2 - c/w ISS and Levemir at reduced dose - Levemir on hold DLP - not on statin Hypothyroidism - c/w Levothyroxine Depression - Will d/c Buspirone and Sertraline - No suicidal / homicidal risk DVT prophylaxis - c/w Heparin Disposition: - Plan for DC tomorrow to [facility] - Discussed with Madhav Valle, I+O VSMadhav, I+O Laboratory Tests 01/18/17 05:24 Red Blood Count 3.53 L, Mean Corpuscular Volume 88.1, Mean Corpuscular Hemoglobin 27.5, Mean Corpuscular Hemoglobin Concent 31.2 L, Red Cell Distribution Width 17.2 H, Neutrophils (%) (Auto) 68.9 H, Lymphocytes (%) (Auto ) 20.9 L, Monocytes (%) (Auto) 8.7 H, Eosinophils (%) (Auto) 0.6, Basophils (%) (Auto) 0.3, Neutrophils # (Auto) 7.1, Lymphocytes # (Auto) 2.2, Monocytes # ( Auto) 0.9 H, Eosinophils # (Auto) 0.1, Basophils # (Auto) 0.0, Calcium Level 8.6 L, Aspartate Amino Transf (AST/SGOT) 19, Alanine Aminotransferase (ALT/SGPT ) 20, Alkaline Phosphatase 70, Total Bilirubin 0.4, Total Protein 7.6, Albumin 2.5 L Vital Signs Date Time Temp Pulse Resp B/P (MAP) Pulse Ox O2 Delivery O2 Flow Rate FiO2 01/18/17 12:00 96.5 33 19 97 Room Air 01/18/17 09:10 137/66 I&O- Last 24 Hours up to 6 AM 01/19/17 06:00 Intake Total 60 ml Output Total 0 ml Balance 60 ml VEDA KO MD Jan 18, 2017 13:55
[2017-01-18] MEDS ORDERED: CLOP75TA2 PO (15:17)
[2017-01-18] MEDS: CLOPIDOGREL 75 MG TAB PO SCH (18:13)
--- NOTE | 2017-01-18 19:45 | IPN ---
DATE: 01/18/2017 CARDIOLOGY PROGRESS NOTE: Unfortunately this elderly female with multiple medical problems including post stroke dementia, severe peripheral vascular disease with above knee amputation was bedridden, is estranged from her family. I tried to reach out to her daughter, Fariha (phone number is on the chart) and have had no return of my calls. Her designated healthcare proxies Sabina Jyoti and Marielos Snyder, did not consent to being healthcare proxies for the patient. They have indicated their understanding of her multiple medical problems and agree that aggressive medical intervention would be inappropriate. Their wish is to "let mother nature take her course". Despite multiple discussions with these two ladies (made by myself and Dr. Carrion, attending physician, and Dr. Castillo, her physician at [facility]), and their wish for her not to undergo any aggressive measures including pacemaker implant, they remain unwilling to sign DO NOT RESUSCITATE papers. In light of this predicament, I have spoken with Dr. Castillo and Dr. Carrion, and I am willing to complete a MOLST form / DNR form based on the wishes of the designated healthcare proxies and the patient's known medical problems. Dr. Carrion and Dr. Castillo stated that they will be willing to cosign this DNR order. [facility] CAMPUSDaphnie
[2017-01-18] MEDS: APIXABAN 5 MG TAB (ELIQUIS) PO SCH (21:50)
[2017-01-19 04:08] LABS: BASO % 0.3 % (0.0-1.0); EOS % 0.3 % (0.0-3.0); IMMATURE GRANULOCYTE % 0.5 % (0-0); LYMPH # 1.9 10^3/uL (1.5-4.5); LYMPH % 18.4 % (24.0-44.0); MEAN CORPUSCULAR HEMOGLOBIN 27.9 pg (27.0-33.0); MEAN CORPUSCULAR HGB CONC 31.6 g/dl (32.0-36.5); MEAN CORPUSCULAR VOLUME 88.4 fl (80.0-96.0); MONO # 0.8 10^3/uL (0.0-0.8); MONO % 7.4 % (0.0-5.0); NEUTROPHILS # 7.7 10^3/uL (1.8-7.7); NEUTROPHILS % 73.1 % (36.0-66.0); PLATELET COUNT, AUTOMATED 367 10^3/uL (150-450); RED CELL DISTRIBUTION WIDTH 16.7 % (11.5-14.5); WHITE BLOOD COUNT 10.5 10^3/uL (4.0-10.0)
[2017-01-19 04:35] LABS: ALBUMIN 2.7 GM/DL (3.2-5.2); ALBUMIN/GLOBULIN RATIO 0.61 (1.00-1.93); BILIRUBIN,TOTAL 0.4 MG/DL (0.2-1.0); CALCIUM LEVEL 8.5 MG/DL (8.8-10.2); CREATININE FOR GFR 1.29 MG/DL (0.55-1.02); MAGNESIUM LEVEL 2.2 MG/DL (1.8-2.4); POTASSIUM SERUM 4.4 MEQ/L (3.5-5.1); TOTAL PROTEIN 7.1 GM/DL (6.4-8.2)
[2017-01-19] MEDS: LEVOTHYROXINE 150MCG TABLET (0.15MG) PO SCH ×2 (05:51→09:44)
[2017-01-19] MEDS: SLF 3 ML SYR IV SCH ×2 (05:52→13:18)
[2017-01-19] MEDS: HEPARIN SOD (PORCINE) 5000 UNITS/ML VIAL SQ SCH ×2 (05:52→13:18)
[2017-01-19] MEDS: HumaLOG INSULIN (NovoLOG) PER UNIT SC SCH ×2 (07:30→11:53)
[2017-01-19] MEDS ORDERED: ASPIRIN 81 MG CHEW TABLET PO SCH (09:00)
[2017-01-19] MEDS: VITAMIN D 1,000 INTERNATIONAL UNITS TABLET PO SCH (09:43)
[2017-01-19] MEDS: CLOPIDOGREL 75 MG TAB PO SCH (09:44)
[2017-01-19] MEDS: VALSARTAN 80 MG TAB (DIOVAN) PO SCH (09:44)
[2017-01-19] MEDS: APIXABAN 5 MG TAB (ELIQUIS) PO SCH (09:44)
[2017-01-19] MEDS: MULTIVITAMINS/MINERALS THERAP 1 TAB PO SCH (09:45)
[2017-01-19 09:49] VITALS: BP 140/60
[2017-01-19 12:00] VITALS: BP 138/38
[2017-01-19] MEDS ORDERED: MORPHINE 10MG/0.5ML ORAL CONCENTRATE SOLUTION U/D SL PRN (13:30)
[2017-01-19] MEDS ORDERED: LORazepam 1 MG TAB PO PRN (13:30)
[2017-01-19] MEDS ORDERED: MORP20SO3 PO (13:32)
[2017-01-19] MEDS ORDERED: LORA0.5T11 PO (13:32)
[2017-01-19] MEDS ORDERED: HYOS125TA PO (13:32)
--- NOTE | 2017-01-19 16:02 | DSES ---
DATE OF ADMISSION: 01/16/2017 DATE OF DISCHARGE: 01/19/2017 PRIMARY CARE PHYSICIAN: Dr. Garcias REFERRING PHYSICIAN: None. CONSULTING PHYSICIANS: Dr. Tarhsa Quintero CONDITION ON DISCHARGE: Guarded. FINAL DIAGNOSIS: Bradycardia without symptoms. PROCEDURES: None. HISTORY OF PRESENT ILLNESS: Patient is a 76-year-old female with a past medical history of dementia, atrial fibrillation, on Eliquis, diastolic congestive heart failure (CHF), hypertension, insulin-dependent diabetes mellitus, dyslipidemia, hypothyroidism, peripheral vascular disease, status post left [id number] (AKA), and depression. She was at [facility] and was being evaluated for right foot 1st digit ischemia. Was incidentally found to have a heart rate of 38 and was transferred to [facility] Emergency Room, and she was admitted for bradycardia. Throughout hospital course the patient was not a candidate for pacemaker after consultation with cardiology. Dr. Oliveros was available and had done a full consultation. Healthcare proxies were contacted who were written in the chart. Healthcare proxies written were Aquiles and Ms. Snyder, and they have indicated that they would like Mother Faustina to take it's course, however, did not want to make any decisions for the patient and were uncomfortable to fill out any medical order for life-sustaining treatment (MOLST) form. Had revoked their rights to become healthcare proxy and had indicated that they were never asked for permission to become healthcare proxies. Several attempts were made to contact the patient's daughter, Jessica Suresh. Several voice mails were left on multiple occasions; however, daughter had never contacted us back again. It has come to our attention that the daughter has been estranged from the mother for several years and has not [facility] at the [facility]. It has been decided that, between myself, Dr. Oliveros, and Dr. Garcias, that the patient will not benefit from pacemaker, and given her poor quality of life she will be made DO NOT RESUSCITATE/DO NOT INTUBATE and comfort measures at this time. Dr. Oliveros and Dr. Willingham are in agreement as well as Dr. Garcias. Dr. 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 HOSPITAL COURSE: 1. Bradycardia. Has remained asymtptomatic. No reversible causes were found. Telemetry shows slow atrial fibrillation. Troponin times three have been negative. Thyroid function has been within normal limits. Patient's diet has been converted to comfort measures after it was decided that she was a poor candidate for pacemaker placement. Majority of medications have been discontinued that do not provide comfort. 2. Accelerated hypertension. 3. Peripheral vascular disease, status post left AKA. 4. Status post leukocytosis. 5. Thrombocytopenia. 6. Elevated creatinine. 7. Dementia. 8. Atrial fibrillation. 9. Diastolic CHF. 10. Insulin-dependent diabetes, type 2. 11. Dyslipidemia. 12. Hypothyroidism. 13. Depression. 14. Deep vein thrombosis (DVT) prophylaxis. After careful consideration, patient has been made DO NOT RESUSCITATE/DO NOT INTUBATE and comfort measures. Patient's healthcare proxies have revoked their right to be a healthcare proxy for the patient. Several attempts have been made to contact the patient's next of kin, Jessica Suresh, which is her oldest child, and she has not reached back to us after several days. I have discussed in detail intentions with healthcare proxies. They have not filled out paperwork, and it has been decided by myself, Dr. Oliveros, Dr. Willingham, and Dr. 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 We have updated her paperwork to reflect this status. DISCHARGE MEDICATIONS: Patient will be discharged back to [facility] with the following medications: - Hyoscyamine 0.125 mg by mouth every 4 hours as needed terminal secretions - lorazepam 0.5 mg by mouth every 4 hours as needed anxiety and agitation - morphine sulfate 0.25-1 mL by mouth every 2 hours as needed for pain or dyspnea - acetaminophen 650 mg by mouth every 4 hours as needed for pain - enema per rectum daily as needed for bowel care - levothyroxine 150 mcg by mouth daily DISCHARGE INSTRUCTIONS: Patient has been advised to followup with her primary care provider, Dr. Garcias, and return to the emergency room if her pain remains uncontrolled. TIME SPENT ON DISCHARGE: Greater than 35 minutes.
--- NOTE | 2017-01-19 19:47 | ECGEPIP ---
Stationary ECG Study [facility] Test Date: 2017-01-19 Pat Name: MILA MCLEAN Department: Room: [place] [address] Gender: F Staking Technician: ERIC : [id number] Requested By: JEREMY FRANCO Order Number: [id number] Reading MD: Roverto Willingham Measurements Intervals [place] Rate: 38 P: ID: 0 QRS: -55 QRSD: 126 T: 106 QT: 587 QTc: 467 Interpretive Statements ATRIAL FIBRILLATION WITH SLOW VENTRICULAR RESPONSE MARKED LEFT AXIS DEVIATION Atypical left bundle-branch block. Electronically Signed On 01-19-2017 19:47:05 EDT by Roverto Willingham
== END 2017-01-19 14:48 | DRG 309 ==
LOC: EDBD 09:32 → M ED 09:32 → M ED INP 12:12 → M ICU 15:00 → M PCU 01-17 01:39
PROVIDERS: ADMIT Internal Medicine; ATTEND Internal Medicine
DX: R00.1 Bradycardia, unspecified (principal); I50.32 Chronic diastolic (congestive) heart failure; I69.959 Hemiplegia and hemiparesis following unspecified cerebrovascular disease affecting unspecified side; I48.2 Chronic atrial fibrillation; E11.9 Type 2 diabetes mellitus without complications; I11.0 Hypertensive heart disease with heart failure; E78.5 Hyperlipidemia, unspecified; I73.9 Peripheral vascular disease, unspecified; F32.9 Major depressive disorder, single episode, unspecified; Z89.612 Acquired absence of left leg above knee; D69.6 Thrombocytopenia, unspecified; F03.90 Unspecified dementia, unspecified severity, without behavioral disturbance, psychotic disturbance, mood disturbance, and anxiety; E03.9 Hypothyroidism, unspecified; Z66 Do not resuscitate; Z51.5 Encounter for palliative care; Z79.899 Other long term (current) drug therapy; Z79.4 Long term (current) use of insulin; D50.9 Iron deficiency anemia, unspecified; E66.9 Obesity, unspecified; F41.9 Anxiety disorder, unspecified; I44.7 Left bundle-branch block, unspecified

== ENCOUNTER → 2017-01-16 | Outpatient (REF) | payer MEDICARE, MEDICAID ==
--- NOTE | 2017-01-16 08:53 | ECGEPIP ---
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 Chief change from 10/19/16, markedly reduced heart rate. Clinical correlation advised Electronically Signed On 01-16-2017 8:52:56 EDT by Pio Oliveros
== END ==
LOC: SKLAB3 07:39
DX: I48.91 Unspecified atrial fibrillation (principal); R00.1 Bradycardia, unspecified